=== PATIENT | male | born 1950 | race Caucasian/White ===

== ENCOUNTER 2022-04-11 07:39 | Day surgery (SDC) | payer MEDICARE, BC ==
[2022-04-05 11:42] LABS: CLARITY,URINE CLEAR (Clear); COLOR,URINE YELLOW (Yellow); GLUCOSE, URINE NEGATIVE (Neg); KETONES,URINE NEGATIVE (Neg); LEUKOCYTE ESTERASE ,URINE NEGATIVE (Neg); NITRITES, URINE NEGATIVE (Neg); OCCULT BLOOD,URINE NEGATIVE (Neg); PROTEIN,URINE NEGATIVE (Neg); UROBILINOGEN,URINE 0.2 E.U/dL (0.2-1.0)
[2022-04-05 11:56] LABS: UA COLLECTION TYPE NON-SPECIFIED
[2022-04-05 12:02] LABS: BASOPHILS % (AUTO) 0.5 % (0-1); EOSINOPHILS # (AUTO) 0.2 X10'3 (0-0.9); EOSINOPHILS % (AUTO) 3.9 % (0-6); LYMPHOCYTES # (AUTO) 0.8 X10'3 (1.1-4.8); LYMPHOCYTES % (AUTO) 16.7 % (21-51); MEAN CORPUSCULAR HEMOGLOBIN 27.5 PG (27.0-31.0); MEAN CORPUSCULAR VOLUME 83.4 FL (78-98); MEAN PLATELET VOLUME 7.8 FL (7.4-10.4); MONOCYTES # (AUTO) 0.5 X10'3 (0-0.9); MONOCYTES % (AUTO) 11.1 % (2-12); NEUTROPHILS # (AUTO) 3.4 X10'3 (1.8-7.7); NEUTROPHILS % (AUTO) 67.8 % (42-75); PRE OP HEMOGLOBIN 15.5 g/dL (14.0-17.9); PRE OP PLATELET COUNT 203 X10'3 (140-440); RED BLOOD COUNT 5.64 X10'6 (4.70-6.10); RED CELL DISTRIBUTION WIDTH 13.7 % (11.5-14.5)
[2022-04-05 12:14] LABS: ALBUMIN 4.2 G/DL (3.4-5.0); ALBUMIN/GLOBULIN RATIO 1.3 (1.1-1.5); ALKALINE PHOSPHATASE 84 IU/L (46-116); BLOOD UREA NITROGEN 17 MG/DL (7-18); BUN/CREATININE RATIO 17.3 (5.4-32.0); CALCIUM 9.2 MG/DL (8.5-10.1); CHLORIDE 103 MMOL/L (99-107); CREATININE 0.98 MG/DL (0.60-1.10); PRE OP ALT 28 U/L (30-65); PRE OP ANION GAP 6 (8-16); PRE OP AST 20 U/L (10-37); PRE OP BILIRUB, TOTAL 0.4 MG/DL (0.0-1.0); PRE OP GLUCOSE 90 MG/DL (70-104); PRE OP POTASSIUM 3.7 MMOL/L (3.4-5.1); PRE OP SODIUM 137 MMOL/L (135-145); TOTAL CARBON DIOXIDE 27.8 MMOL/L (24-32); TOTAL PROTEIN 7.5 G/DL (6.4-8.2); eGFR 75 ML/MIN
[~2022-04-11] VITALS: Ht 182.9 cm; Wt 90.0 kg
[2022-04-11] VITALS (16 sets, daily range): BP systolic 136–158; BP diastolic 62–91
[~2022-04-11 07:39] MED LIST: BUPIVAcaine 0.5% inj/PF 30 ML ONE; ESCI-8 PO; FLO0.4C PO; LISI40TA13 PO; ceFAZolin inj. 2,000 MG in dextrose 5%-water 100 ML IV ONE; famotidine 20mg tablet PO ONE; ringers solution, lacted 1,000 ML IV SCH
[2022-04-11] MEDS ORDERED: ondansetron/PF 4mg/2ml inj IV PRN (09:10)
[2022-04-11] MEDS ORDERED: meperidine/PF 25mg/ml syringe IV PRN (09:10)
[2022-04-11] MEDS ORDERED: ketorolac tromethamine 15mg/ml inj. IV ONE (09:10)
[2022-04-11] MEDS ORDERED: ringers solution, lacted 1,000 ML IV SCH (09:10)
[2022-04-11] MEDS ORDERED: labetalol 20mg/4ml (5mg/ml) syringe IV PRN (09:10)
[2022-04-11] MEDS ORDERED: hydrALAZINE 20mg/ml inj. IV PRN (09:10)
[2022-04-11] MEDS ORDERED: proCHLORperazine 10 MG/2 ml inj IV PRN (09:10)
[2022-04-11] MEDS ORDERED: acetaminophen 1,000mg/100ml IV 100 ML IV PRN (09:10)
[2022-04-11] MEDS ORDERED: morphine 2 MG/ML inj. syringe IV PRN (09:10)
[2022-04-11] MEDS ORDERED: HYDROmorphone/PF 0.2 MG/ML SYRINGE IV PRN ×2 (09:10)
[2022-04-11] MEDS ORDERED: morphine 4 MG/ML inj SYRINge IV PRN (09:10)
[2022-04-11] MEDS ORDERED: sevoflurane 250ml liquid IH ONE (11:18)
[2022-04-11] MEDS ORDERED: midazolam 1 mg/ML 2ml injection ONE (11:25)
[2022-04-11] MEDS ORDERED: fentaNYL /PF 50mcg/ml 5ml ampule ONE (11:25)
[2022-04-11] MEDS ORDERED: BUPIVAcaine 0.5% inj/PF 30 ml vial IJ ONE (11:50)
[2022-04-11] MEDS ORDERED: LIDOcaine 2% (20mg/ml) 5ml vial ONE (11:53)
[2022-04-11] MEDS ORDERED: ePHEDrine 50MG/ML INJ. ONE (11:53)
[2022-04-11] MEDS ORDERED: rocuronium 10mg/ml inj IV ONE (11:53)
[2022-04-11] MEDS ORDERED: propofol inj 20 ML IV ONE (11:53)
[2022-04-11] MEDS ORDERED: dexamethasone sod phosphate 4mg/ml inj. ONE (11:54)
[2022-04-11] MEDS ORDERED: ondansetron/PF 4mg/2ml inj ONE (11:54)
[2022-04-11] MEDS ORDERED: neostigmine methylsulfate 1 MG/ML 10ml vial ONE (13:32)
[2022-04-11] MEDS ORDERED: glycopyrrolate 0.2mg/ml inj ONE (13:32)
--- NOTE | 2022-04-11 13:40 | NUR ---
Received from OR via BED, accompanied by Anesthesiologist and report given by Anesthesiologist. PATIENT WAKING UP, NO S/S OF PAIN, V/S WNL, SCD ON, 20G TO LUE, ABDOMEN LAP SITE CLEAN W/ NO S/S OF COMPLICATIONS
--- NOTE | 2022-04-11 16:52 | NUR ---
PATIENT UNABLE TO VOID, BLADDER SCAN 160, ENC FLUID INTAKE AND AMBULATION AND WILL RECHECK IN 30 MIN
[2022-04-11] MEDS ORDERED: LIDOcaine 2% 10ml TOPICAL JELLY (Urojet) MM ONE (17:25)
--- NOTE | 2022-04-11 17:40 | NUR ---
PATIENT A&OX4, DENIES PAIN, V/S WNL, SCD OFF, 20G TO LUE D/C, ABDOMEN LAP SITE CLEAN W/ NO S/S OF COMPLICATIONS, PATIENT UNABLE TO VOID WITH BLADDER SCAN >600CC,. F/C PLACED PER PROTICAL WITH NO COMPLICATIONS DUE TO PATIENT BEING UNABLE TO VOID AND OVER 600CC IN BLADDER SCAN. GOOD OUTPUT OF URINE FROM F/C WITH CLEAR YELLOW URINE. I HAVE DEMONSTRATED F/C CARE AND PATIENT HAS VERBALIZED UNDERSTANDING ON HOME CARE. EDUCATION PACKET GIVEN TO PATIENT WELL FOR F/C MANAGEMENT FOR HOME. PATIENT AGREES HE WILL CALL DR HODGE OFFICE IN AM FOR F/C D/C APPT IN OFFICE OR REMOVE AT HOME INSTRUCTED PER PROTICAL ON SATURDAY MORNING. I HAVE REVIEWED ALL D/C PAPERWORK ORDERS WITH PATIENT AND HIS AND THEY HAVE VERBALIZED UNDERSTANDING. PATIENT D/C HOME WITH ALL BELONGINGS AND GAVE TRANSPORT..
== END 2022-04-11 17:40 | disposition home or self-care (01) ==
LOC: PAS 07:39
PROVIDERS: ATTEND Surgery
DX: K40.91 Unilateral inguinal hernia, without obstruction or gangrene, recurrent (principal); D17.6 Benign lipomatous neoplasm of spermatic cord; I10 Essential (primary) hypertension; F12.90 Cannabis use, unspecified, uncomplicated; Z88.8 Allergy status to other drugs, medicaments and biological substances; Z79.899 Other long term (current) drug therapy; Z87.891 Personal history of nicotine dependence; Z98.890 Other specified postprocedural states; Z82.3 Family history of stroke
CPT/HCPCS: 36415; 49651; 80053; 81003; 82948; 85025; 93005; C1758; C1781; J0131; J0690; J1100; J1885; J2175; J2250; J2405; J2704; J2710; J3010; J3490; J7030; J7060; J7120; S0020; Z7506; Z7508; Z7512; A4215; A4618